=== PATIENT | male | born 1985 | race Caucasian/White ===

== ENCOUNTER 2018-10-29 14:10 | Emergency (ER) | payer MEDICARE, MEDICAID ==
[~2018-10-29] VITALS: Ht 177.8 cm; Wt 81.8 kg
[~2018-10-29 14:10] MED LIST: BENZ1TAB7 PO; DIVA-81 PO; HALO10TA13 PO; PSEU120T84 PO; QUET300T3 PO
[2018-10-29 14:51] LABS: ACETAMINOPHEN < 2.0 UG/ML (10-30); ALANINE AMINOTRANSFERASE 52 U/L (12-78); ALBUMIN 3.9 G/DL (3.4-5.0); ALBUMIN/GLOBULIN RATIO 1.4 (1.1-1.5); ALKALINE PHOSPHATASE 67 IU/L (46-116); ANION GAP 12 (8-16); ASPARTATE AMINO TRANSFERASE 65 U/L (10-37); BILIRUBIN,TOTAL 0.8 MG/DL (0.1-1.0); BLOOD UREA NITROGEN 17 MG/DL (7-18); BUN/CREATININE RATIO 18.5 (5.4-32.0); CALCIUM 9.1 MG/DL (8.5-10.1); CHLORIDE 108 MMOL/L (99-107); CREATININE 0.92 MG/DL (0.60-1.10); ETHANOL < 0.010 GM/DL (0.0-0.010); GLUCOSE 89 MG/DL (70-104); POTASSIUM 3.3 MMOL/L (3.5-5.1); SODIUM 143 MMOL/L (135-145); TOTAL CARBON DIOXIDE 22.9 MMOL/L (24-32); TOTAL PROTEIN 6.6 G/DL (6.4-8.2); eGFR > 90 ML/MIN
[2018-10-29 15:00] LABS: BASOPHILS # (AUTO) 0.1 X10'3 (0-0.2); EOSINOPHILS # (AUTO) 0.2 X10'3 (0-0.9); EOSINOPHILS % (AUTO) 2.8 % (0-6); HEMATOCRIT 41.2 % (42.0-52.0); HEMOGLOBIN 13.6 g/dl (14.0-17.9); LYMPHOCYTES # (AUTO) 1.4 X10'3 (1.1-4.8); LYMPHOCYTES % (AUTO) 21.7 % (21-51); MEAN CORPUSCULAR HEMOGLOBIN 29.6 PG (27.0-31.0); MEAN CORPUSCULAR HGB CONC 32.9 % (33.0-36.5); MEAN CORPUSCULAR VOLUME 89.8 FL (78-98); MEAN PLATELET VOLUME 10.3 FL (7.4-10.4); MONOCYTES # (AUTO) 0.5 X10'3 (0-0.9); MONOCYTES % (AUTO) 8.1 % (2-12); NEUTROPHILS # (AUTO) 4.3 X10'3 (1.8-7.7); NEUTROPHILS % (AUTO) 66.4 % (42-75); PLATELET COUNT 181 X10'3 (140-440); RED BLOOD COUNT 4.59 X10'6 (4.70-6.10); RED CELL DISTRIBUTION WIDTH 13.4 % (11.5-14.5); WHITE BLOOD COUNT 6.5 X10'3 (4.5-11.0)
[2018-10-29 16:09] LABS: URINE AMPHETAMINE SCREEN NEGATIVE (Neg); URINE BARBITUATE SCREEN NEGATIVE (Neg); URINE BENZODIAZEPINES SCREEN NEGATIVE (Neg); URINE CANNABINOID SCREEN POSITIVE (Neg); URINE COCAINE SCREEN NEGATIVE (Neg); URINE METHADONE SCREEN NEGATIVE (Neg); URINE OPIATE SCREEN NEGATIVE (Neg); URINE PHENCYCLIDINE SCREEN NEGATIVE (Neg)
[2018-10-29 16:19] LABS: CLARITY,URINE SLIGHTLY CLOUDY (Clear); COLOR,URINE YELLOW (Yellow); GLUCOSE, URINE NEGATIVE (Neg); KETONES,URINE 40 mg/dl (Neg); LEUKOCYTE ESTERASE ,URINE NEGATIVE (Neg); NITRITES, URINE NEGATIVE (Neg); OCCULT BLOOD,URINE NEGATIVE (Neg); PH,URINE 5.5 (4.8-8.0); PROTEIN,URINE 30 mg/dl (Neg)
[2018-10-29 16:24] LABS: UA COLLECTION TYPE CLN CATCH MIDSTREAM
[2018-10-29 16:29] LABS: MUCUS STRANDS MANY /LPF (Neg); SQUAMOUS EPITHELIAL CELL,UR FEW /LPF (FEW)
[2018-10-29 16:30] LABS: BACTERIA,URINE NONE SEEN /HPF (Neg); RBC,URINE NONE SEEN /HPF (0-2); WBC,URINE 0-4 /HPF (0-4)
[2018-10-29] MEDS ORDERED: nicotine 21mg patch - 24 hr TD ONE (23:45)
[2018-10-30] MEDS ORDERED: acetaminophen 325mg tablet PO ONE (07:00)
[2018-10-30] MEDS ORDERED: QUETIAPINE 50 MG TAB.SR.24H PO ONE (14:50)
[2018-10-30] MEDS ORDERED: simethicone 125mg capsule PO PRN (14:50)
[2018-10-30] MEDS ORDERED: clonazePAM 1mg tablet PO ONE (14:50)
[2018-10-30] MEDS ORDERED: QUET50TA15 PO (15:06)
[2018-10-30] MEDS: nicotine 21mg patch - 24 hr TD SCH (15:51)
[2018-10-31 05:46] VITALS: BP 138/87
[2018-10-31] MEDS: nicotine 21mg patch - 24 hr TD SCH (07:51)
[2018-10-31] MEDS ORDERED: QUETIAPINE 50 MG TAB.SR.24H PO SCH (08:00)
[2018-10-31] MEDS ORDERED: QUEtiapine 25mg tablet PO SCH (10:00)
[2018-10-31] MEDS ORDERED: QUET50TA PO (10:18)
[2018-10-31] MEDS ORDERED: CLON-528 PO (10:18)
[2018-11-01] MEDS ORDERED: ACET-2119 PO (04:51)
[2018-11-01] MEDS ORDERED: IBUP-1984 PO (04:51)
== END 2018-10-31 11:35 | disposition home or self-care (01) ==
LOC: ER 14:11
DX: F32.9 Major depressive disorder, single episode, unspecified (principal); R45.851 Suicidal ideations; F20.9 Schizophrenia, unspecified; F12.10 Cannabis abuse, uncomplicated; F15.10 Other stimulant abuse, uncomplicated; Z59.0 Homelessness; Z56.0 Unemployment, unspecified; Z79.899 Other long term (current) drug therapy
CPT/HCPCS: 36415; 80053; 80305; 80320; 80329; 81001; 84443; 85025; 99285

== ENCOUNTER 2018-11-01 04:36 | Emergency (ER) | payer MEDICARE, MEDICAID ==
[~2018-11-01] VITALS: Ht 177.8 cm; Wt 85.0 kg
[~2018-11-01 04:36] MED LIST changes: -BENZ1TAB7 PO; +CLON-528 PO; -DIVA-81 PO; -HALO10TA13 PO; -PSEU120T84 PO; -QUET300T3 PO; +QUET50TA PO; +QUET50TA15 PO
[2018-11-01 04:41] VITALS: BP 137/82
[2018-11-01] MEDS ORDERED: acetaminophen 325mg tablet PO ONE (04:50)
[2018-11-01] MEDS ORDERED: ketorolac trometh inj. 60 MG/2 ML VIAL IM ONE (04:50)
[2018-11-01] MEDS ORDERED: IBUP-1984 PO (04:51)
[2018-11-01] MEDS ORDERED: ACET-2119 PO (04:51)
== END 2018-11-01 05:17 | disposition home or self-care (01) ==
LOC: ER 04:36
DX: M25.571 Pain in right ankle and joints of right foot (principal); F12.90 Cannabis use, unspecified, uncomplicated; F15.90 Other stimulant use, unspecified, uncomplicated; Z79.899 Other long term (current) drug therapy; Z59.0 Homelessness; Z56.0 Unemployment, unspecified
CPT/HCPCS: 96372; 99283; J1885

== ENCOUNTER 2018-11-01 22:15 | Emergency (ER) | payer MEDICARE, MEDICAID ==
[~2018-11-01] VITALS: Ht 177.8 cm; Wt 81.8 kg
[~2018-11-01 22:15] MED LIST changes: +ACET-2119 PO; +IBUP-1984 PO
[2018-11-01 22:16] VITALS: BP 132/73
[2018-11-01] MEDS ORDERED: LORazepam 2 mg/ml vial IM ONE ×2 (22:40→23:35)
[2018-11-01] MEDS ORDERED: diphenhydrAMINE 50 mg/ml inj IM ONE (22:40)
[2018-11-01] MEDS ORDERED: haloperidol lactate 5mg/ml inj IM ONE (22:40)
[2018-11-02 01:29] LABS: CLARITY,URINE CLEAR (Clear); COLOR,URINE YELLOW (Yellow); GLUCOSE, URINE NEGATIVE (Neg); KETONES,URINE NEGATIVE (Neg); LEUKOCYTE ESTERASE ,URINE NEGATIVE (Neg); NITRITES, URINE NEGATIVE (Neg); OCCULT BLOOD,URINE NEGATIVE (Neg); PROTEIN,URINE NEGATIVE (Neg); UROBILINOGEN,URINE 0.2 E.U/dL (0.2-1.0)
[2018-11-02 01:34] LABS: UA COLLECTION TYPE CLN CATCH MIDSTREAM
[2018-11-02 01:44] LABS: ALANINE AMINOTRANSFERASE 47 U/L (12-78); ALBUMIN 3.8 G/DL (3.4-5.0); ALBUMIN/GLOBULIN RATIO 1.4 (1.1-1.5); ALKALINE PHOSPHATASE 56 IU/L (46-116); ANION GAP 11 (8-16); ASPARTATE AMINO TRANSFERASE 37 U/L (10-37); BILIRUBIN,TOTAL 0.6 MG/DL (0.1-1.0); BLOOD UREA NITROGEN 16 MG/DL (7-18); CALCIUM 9.1 MG/DL (8.5-10.1); CHLORIDE 105 MMOL/L (99-107); CREATININE 0.94 MG/DL (0.60-1.10); ETHANOL < 0.010 GM/DL (0.0-0.010); GLUCOSE 79 MG/DL (70-104); POTASSIUM 3.8 MMOL/L (3.5-5.1); SODIUM 142 MMOL/L (135-145); TOTAL CARBON DIOXIDE 25.7 MMOL/L (24-32); TOTAL PROTEIN 6.5 G/DL (6.4-8.2); eGFR > 90 ML/MIN
[2018-11-02 01:44] LABS: URINE AMPHETAMINE SCREEN NEGATIVE (Neg); URINE BARBITUATE SCREEN NEGATIVE (Neg); URINE BENZODIAZEPINES SCREEN NEGATIVE (Neg); URINE CANNABINOID SCREEN POSITIVE (Neg); URINE COCAINE SCREEN NEGATIVE (Neg); URINE METHADONE SCREEN NEGATIVE (Neg); URINE OPIATE SCREEN NEGATIVE (Neg); URINE PHENCYCLIDINE SCREEN NEGATIVE (Neg)
[2018-11-02 01:48] LABS: ACETAMINOPHEN < 2.0 UG/ML (10-30)
[2018-11-02 02:16] LABS: BASOPHILS # (AUTO) 0.1 X10'3 (0-0.2); BASOPHILS % (AUTO) 1.9 % (0-1); EOSINOPHILS # (AUTO) 0.3 X10'3 (0-0.9); EOSINOPHILS % (AUTO) 3.9 % (0-6); HEMATOCRIT 40.7 % (42.0-52.0); HEMOGLOBIN 13.6 g/dl (14.0-17.9); LYMPHOCYTES % (AUTO) 30.6 % (21-51); MEAN CORPUSCULAR HEMOGLOBIN 29.7 PG (27.0-31.0); MEAN CORPUSCULAR HGB CONC 33.4 % (33.0-36.5); MEAN CORPUSCULAR VOLUME 89.1 FL (78-98); MEAN PLATELET VOLUME 10.3 FL (7.4-10.4); MONOCYTES # (AUTO) 0.8 X10'3 (0-0.9); MONOCYTES % (AUTO) 12.1 % (2-12); NEUTROPHILS # (AUTO) 3.4 X10'3 (1.8-7.7); NEUTROPHILS % (AUTO) 51.5 % (42-75); PLATELET COUNT 175 X10'3 (140-440); RED BLOOD COUNT 4.57 X10'6 (4.70-6.10); RED CELL DISTRIBUTION WIDTH 13.4 % (11.5-14.5); WHITE BLOOD COUNT 6.6 X10'3 (4.5-11.0)
== END 2018-11-02 11:16 | disposition home or self-care (01) ==
LOC: ER 22:15
DX: R45.851 Suicidal ideations (principal); R45.1 Restlessness and agitation; F32.9 Major depressive disorder, single episode, unspecified; F20.9 Schizophrenia, unspecified; F12.90 Cannabis use, unspecified, uncomplicated; F15.90 Other stimulant use, unspecified, uncomplicated; Z59.0 Homelessness; Z56.0 Unemployment, unspecified; Z79.899 Other long term (current) drug therapy
CPT/HCPCS: 36415; 80053; 80305; 80320; 80329; 81003; 85025; 96372; 99291; J1200; J1630; J2060

== ENCOUNTER 2018-11-04 08:22 | Emergency (ER) | payer MEDICARE, MEDICAID ==
[~2018-11-04] VITALS: Ht 177.8 cm; Wt 81.0 kg
[2018-11-04] MEDS ORDERED: QUET50TA15 PO (09:25)
[2018-11-04 09:53] VITALS: BP 117/61
== END 2018-11-04 09:55 | disposition home or self-care (01) ==
LOC: ER 08:22
DX: F32.9 Major depressive disorder, single episode, unspecified (principal); Z76.0 Encounter for issue of repeat prescription; F20.9 Schizophrenia, unspecified; F12.90 Cannabis use, unspecified, uncomplicated; F15.90 Other stimulant use, unspecified, uncomplicated; Z79.899 Other long term (current) drug therapy; Z59.0 Homelessness; Z56.0 Unemployment, unspecified
CPT/HCPCS: 99283

== ENCOUNTER 2018-11-10 15:37 | Emergency (ER) | payer MEDICARE, MEDICAID ==
[~2018-11-10] VITALS: Ht 177.8 cm; Wt 89.5 kg
[2018-11-10 15:47] VITALS: BP 128/80
[2018-11-11] MEDS ORDERED: ALBU8.5H8 IH (17:43)
[2018-11-11] MEDS ORDERED: TRAZ-219 PO (17:43)
== END 2018-11-10 16:02 | disposition home or self-care (01) ==
LOC: ER 15:37
DX: F15.10 Other stimulant abuse, uncomplicated (principal); F32.9 Major depressive disorder, single episode, unspecified; F20.9 Schizophrenia, unspecified; F12.90 Cannabis use, unspecified, uncomplicated; Z59.0 Homelessness; Z56.0 Unemployment, unspecified; Z79.899 Other long term (current) drug therapy
CPT/HCPCS: 99281

== ENCOUNTER 2018-11-11 17:23 | Emergency (ER) | payer MEDICARE, MEDICAID ==
[~2018-11-11] VITALS: Ht 177.8 cm; Wt 81.8 kg
[2018-11-11 17:40] VITALS: BP 126/81
[2018-11-11] MEDS ORDERED: ALBU8.5H8 IH (17:43)
[2018-11-11] MEDS ORDERED: TRAZ-219 PO (17:43)
== END 2018-11-11 18:27 | disposition home or self-care (01) ==
LOC: ER 17:23
DX: F15.982 Other stimulant use, unspecified with stimulant-induced sleep disorder (principal); F12.90 Cannabis use, unspecified, uncomplicated; Z59.0 Homelessness; Z56.0 Unemployment, unspecified; Z79.899 Other long term (current) drug therapy
CPT/HCPCS: 99283

== ENCOUNTER 2018-11-18 04:22 | Emergency (ER) | payer MEDICARE, MEDICAID ==
[~2018-11-18] VITALS: Ht 177.8 cm; Wt 86.2 kg
[~2018-11-18 04:22] MED LIST changes: +ALBU8.5H8 IH; +TRAZ-219 PO
[2018-11-18 04:31] VITALS: BP 135/70
[2018-11-20] MEDS ORDERED: CLON0.5T13 PO (07:05)
[2018-11-20] MEDS ORDERED: QUET50TA22 PO (07:05)
== END 2018-11-18 05:27 | disposition home or self-care (01) ==
LOC: ER 04:24
DX: M79.671 Pain in right foot (principal); M79.672 Pain in left foot; F32.9 Major depressive disorder, single episode, unspecified; F20.9 Schizophrenia, unspecified; F12.90 Cannabis use, unspecified, uncomplicated; F15.90 Other stimulant use, unspecified, uncomplicated; Z59.0 Homelessness; Z56.0 Unemployment, unspecified; Z79.899 Other long term (current) drug therapy
CPT/HCPCS: 99281

== ENCOUNTER 2018-11-20 09:18 | Inpatient (IN) | payer MEDICARE, MEDICAID ==
[~2018-11-20] VITALS: Ht 177.8 cm; Wt 80.1 kg
[~2018-11-20 09:18] MED LIST changes: -ACET-2119 PO; -ALBU8.5H8 IH; -CLON-528 PO; +CLON0.5T13 PO; -IBUP-1984 PO; -QUET50TA PO; -QUET50TA15 PO; +QUET50TA22 PO; -TRAZ-219 PO
--- NOTE | 2018-11-20 11:00 | NUR ---
ADMIT NOTE: PT admitted to [facility] for depression by [facility]ato WORTHY through Dr Talavera. Pt was placed on 5150 for DTS. Pt was found walking close to the roadway [address] pt made statement that he wanted to get hit by a vehicle or hang himself. Pt was admitted and brought to unit at 1100 today. PT oriented to the unit. PTs clothes are being washed and pt will shower when his clothes are clean. Pt brought to 324B.
[2018-11-20] MEDS ORDERED: tuberculin, purif. prot. deriv. 5 units/0.1ml ID ONE (11:20)
[2018-11-20] MEDS ORDERED: magnesium hydroxide 30ml (MOM) UD suspension PO PRN (11:20)
[2018-11-20] MEDS ORDERED: mag hydrox/Alum hydrox/simeth 30ml oral suspension PO PRN (11:20)
[2018-11-20 13:13] VITALS: BP 106/63
--- NOTE | 2018-11-20 14:14 | NUR ---
Nursing Progress Note Chief Complaint: Depression with SI Legal hold: 5150 Client on involuntary status for DTS. Report received from [facility]. Why are they here: Patient states that he was walking down the road wanting to get run over. Diagnosis/presenting symptoms: Depression. SI Assessment What has happened this shift: Patient was brought to unit at 11:00. Cooperative with admission process. Pt. states he has been using meth and THC, allowed to sleep this afternoon. States he has HI towards his family. He reports that he has been depressed and suicidal since he was a small child, no attempts. Reports too many inpatient admissions to count. Also wants to hang himself or be run over by a car. S/I, H/I: SI and HI. A/VH: Denies. Sleep: Sleeping this afternoon. ADL's: Dirty and malodorous on admission. Showered. Group attendance: None. Were meds taken: None. Any med S/E None. Mental Status Exam Appearance: Young appearing 33-year-old male who has blood blister on left hand. Scratches and bruising to chrissie. lower extremities. Reports feet hurt due to homelessness and walking. Eye contact: Poor. Behavior: Cooperative. Speech: Clear. Mood: Depressed. Affect: Blunted. Thought process: tangential. Thought Content: Sobriety. Cognition: Intact. Insight: Poor. Judgment: Poor. Interventions PRN's used: None. Therapeutic interventions: 1:1 to assess for severity of symptoms. Pictures taken of feet, left hand. q15" safety checks. Restraints/seclusion/emergency medication: None. Justification of Continued Inpatient Treatment: Patient is suicidal and unless stabilized, would be at great risk for self-harm.
[2018-11-20] MEDS ORDERED: NO HOME MEDS (15:46)
[2018-11-20] MEDS: acetaminophen 325mg tablet PO PRN (19:25)
[2018-11-20 19:58] VITALS: BP 121/68
[2018-11-20] MEDS: traZODone 50mg tablet PO SCH (20:51)
--- NOTE | 2018-11-21 00:57 | NUR ---
Nursing Note: Chief Complaint: Depression Legal hold: 5150 Client on involuntary status for DTS Report received from nurse with use of SBAR: JAYNE Storm Why are they here: Pt. brought to the ER by police after found walking down the road with stated S/I to get hit by a vehicle or hang himself. Per pt. he has not been taking his mental health medications for some time and he has been using methamphetamine and marijuana. He lives on his parent's property in a shed, however they will not let him stay there until he is clean and sober. He has had insomnia r/t the methamphetamine use. Pt. has a long hx of depression with S/I, LPS Conservatorship, and multiple psychiatric hospitalizations. He was also in [facility] for some time and receives SSI. Diagnosis/presenting symptoms: Pt. presents as cooperative but fatigued, he denies S/I or depression at this time. Assessment What has happened this shift: Pt. in assessment with the Dr. Cerda at the beginning of the shift, and then in the Recreation Room watching TV and interacting appropriately with others. This ad writer introduced self and pt. requests PRN medication for chronic pain in his right tooth that radiates to his right ear. PRN Tylenol administered with effectiveness, and shortly afterwards he retreated to bed and continued to isolate here throughout the shift. Attempted to complete 1:1 at bedside upon administration of scheduled Trazodone, however pt. remained very fatigued and sleeping soundly. Pt. cooperative with medication administration and assessment, he denies S/I or depression at this time, states, "I'm glad the police brought me here this time instead of the [place] [facility]; I can get the help I need." S/I, H/I: Denies A/VH: N/A Sleep: Scheduled Trazodone administered, appears to be sleeping soundly. ADL's: Pt. ambulates and uses the BR independently Group attendance: Did not attend HS snack Were meds taken: Yes Any med S/E: None, however pt. slightly hypocalcemic in the ER, will endorse to AM shift and continue to monitor. Mental Status Exam Appearance: Shaved head, tattoos, appropriately dressed in hospital attire. Eye contact: Fair Behavior: Cooperative, but guarded Speech: Scant, however WNL Mood: Pleasant, but fatigued Affect: Constricted Thought process: Poverty of thought with blocking regarding mental illness Thought Content: Phobia in regards to taking medications, refused to take antipsychotics Cognition: A&O Insight: Poor Judgment: Poor to fair Interventions PRN's used: Tylenol X1 Therapeutic interventions: Established rapport, provided active listening, maintained a safe and therapeutic environment, provided a structured environment, assessed for pain and the need for medication, and maintained Q 15 min safety checks. Restraints/seclusion/emergency medication: N/A Justification of Continued Inpatient Treatment: Pt. requires interruption of current crisis, medication adjustments, therapeutic interventions, and possibly housing or referral to [facility].
[2018-11-21 07:11] VITALS: BP 116/64
[2018-11-21] MEDS ORDERED: nicotine 21mg patch - 24 hr TD SCH (08:00)
[2018-11-21 08:35] LABS: CHOL/HDL RATIO 2.3 (0.00-4.99); CHOLESTEROL 139 MG/DL (0-200); HDL CHOLESTEROL 60 MG/DL (35-60); LDL CHOLESTEROL 63 MG/DL (50-100); TRIGLYCERIDES 70 MG/DL (20-135)
[2018-11-21 09:13] LABS: HEMOGLOBIN A1C 5.4 % (4.5-6.2)
[2018-11-21] MEDS: nicotine 21mg patch - 24 hr TD SCH (09:15)
[2018-11-21] MEDS: acetaminophen 325mg tablet PO PRN ×2 (11:10→20:15)
--- NOTE | 2018-11-21 14:34 | NUR ---
Nursing Progress Note Chief Complaint: Depression with SI Legal hold: 5150 Client on involuntary status for DTS. Report received from [facility]. Why are they here: Patient states that he was walking down the road wanting to get run over. Diagnosis/presenting symptoms: Depression. SI Assessment What has happened this shift: Patient awoke in an agitated mood. States he was told by [employer] that he could have 2 cups of coffee, which was only discussed with patient. Patient states "I guess I'll just stay in bed all day". Patient states he has 10/10 back pain, tylenol given with good relief. Patient was overheard arguing with family. Patient states that his family wants him to go to rehab, but patient is adamant that he will not go into rehab. States that the probation dept. 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 Patient states that is what he wants to do. Pt. states that he cannot go home to family home until rehab. Patient states that he will probably on the streets. Patient denies SI, depression, or any associated symptoms. Refuses mood stabilizers or antipsychotics. S/I, H/I: Denies. A/VH: Denies. Sleep: 2 naps during day. ADL's: Independent. Group attendance: None. Were meds taken: Tylenol. Any med S/E None. Mental Status Exam Appearance: Young appearing 33-year-old male who has blood blister on left hand. Scratches and bruising to chrissie. lower extremities. Reports feet hurt due to homelessness and walking. Eye contact: Poor. Behavior: Angry, agitated. Speech: Clear. Mood: Agitated. Affect: Blunted. Thought process: Blocking. Thought Content: Discharge plans. Cognition: Intact. Insight: Poor. Judgment: Poor. Interventions PRN's used: Tylenol. Therapeutic interventions: 1:1 to assess for severity of symptoms. q15" safety checks. Restraints/seclusion/emergency medication: None. Justification of Continued Inpatient Treatment: Patient is in denial about SI, depression. With suicidal statements just made 11/20/18, patient needs monitoring and stabilization or will be high risk for readmission.
[2018-11-21] MEDS: hydrOXYzine 25 MG tablet PO SCH (17:16)
[2018-11-21 19:55] VITALS: BP 109/54
[2018-11-21] MEDS: traZODone 50mg tablet PO SCH (20:13)
[2018-11-21] MEDS: hydrocortisone 1% cream 28gm TP SCH (20:16)
[2018-11-21] MEDS: miconazole nitrate 28.35 gm derm cream TP SCH (20:16)
--- NOTE | 2018-11-22 02:51 | NUR ---
Nursing Note: Chief Complaint: Depression Legal hold: 5150 Client on involuntary status for DTS Report received from nurse with use of SBAR: JAYNE Storm Why are they here: Pt. brought to the ER by police after found walking down the road with stated S/I to get hit by a vehicle or hang himself. Per pt. he has not been taking his mental health medications for some time and he has been using methamphetamine and marijuana. He lives on his parent's property in a shed, however they will not let him stay there until he is clean and sober. He has had insomnia r/t the methamphetamine use. Pt. has a long hx of depression with S/I, LPS Conservatorship, and multiple psychiatric hospitalizations. He was also in nursing home for some time and receives SSI. Pt. would like to go to [employer] and study [employer]. Diagnosis/presenting symptoms: Pt. presents as withdrawn, irritated, and fatigued, he continues to deny S/I or depression. Assessment What has happened this shift: Pt. in bed sleeping in a darkened room at the beginning of the shift and continued to isolate here throughout the shift except for a brief visit from his family. Family did not stay long and pt. immediately returned back to bed, when questioned by this clinical writer about how visit went he irritably stated, "There was no visit." 1:1 completed at bedside, pt. presents as withdrawn, irritated, and fatigued, he continues to deny S/I or depression, states, "I want tomorrow to be done and over with, I want to get out of here." When this clinical writer questioned pt. regarding where he plans to go, he reported he wants to go back on the streets. He continues to refuse to attend groups or take any psychotropic medications. Miconazole Nitrate Cream applied per order for chronic burning pain in bilateral feet, with effectiveness. S/I, H/I: Denies A/VH: N/A Sleep: Scheduled Trazodone administered, appears to be sleeping soundly. However, pt reports he did not sleep well the night before and he woke up a lot with weird dreams. ADL's: Independent Group attendance:Refuses Were meds taken: Yes Any med S/E: Pt. has a slightly reddened rash on left upper arm and chest, no other s/s of allergic reaction, V/S stable, and pt. reports he believes rash is r/t the bar soap he used for a shower today. New order for Hydrocortisone Cream per Dr. Viramontes, administered at HS and will monitor. Mental Status Exam Appearance: Shaved head, tattoos (name on back of head), appropriately dressed in hospital attire. Showered today. Eye contact: Poor to fair Behavior: Cooperative, however withdrawn, irritable, and fatigued. Psychomotor WNL Speech: Scant with low volume Mood: Irritable Affect: Flat Thought process: Poverty of thought with blocking regarding mental illness Thought Content: Phobia in regards to taking medications and preoccupation/irritation regarding being kept on a MH hold Cognition: A&O X4 Insight: Poor Judgment: Poor Interventions PRN's used: Tylenol X1 for chronic burning in bilateral feet with effectiveness Therapeutic interventions: Provided active listening, maintained a safe and therapeutic environment, provided a structured environment, assessed for pain and the need for medication, removed nicotine patch at HS, administered ordered Miconazole and Hydrocortisone creams, and maintained Q 15 min safety checks. Restraints/seclusion/emergency medication: N/A Justification of Continued Inpatient Treatment: Pt. requires interruption of current crisis, medication adjustments, therapeutic interventions. Per ZAYNAB Cerda, if he discharges to the street or a hotel he will probably relapse, medications and resources will continue to be offered.
--- NOTE | 2018-11-22 03:21 | NUR ---
Nursing Note: Pt. refused scheduled 0000 Atrax. Will endorse to AM shift per possible need to readjust medication time.
[2018-11-22 08:00] VITALS: BP 94/48
[2018-11-22] MEDS: hydrOXYzine 25 MG tablet PO SCH ×2 (08:57)
[2018-11-22] MEDS: nicotine 21mg patch - 24 hr TD SCH (08:58)
[2018-11-22] MEDS: hydrocortisone 1% cream 28gm TP SCH (08:58)
[2018-11-22] MEDS: miconazole nitrate 28.35 gm derm cream TP SCH (08:58)
[2018-11-22] MEDS: acetaminophen 325mg tablet PO PRN (10:47)
[2018-11-22] MEDS ORDERED: HYDR50TA65 PO (13:54)
[2018-11-22] MEDS ORDERED: TRAZ-219 PO (13:54)
--- NOTE | 2018-11-22 15:05 | NUR ---
Discharge Note Patient discharged to home with all his personal belongings that were inventoried with him and inventory sheet signed by him. He was also given a prescription bottle of Trazodone and another of Vistaril. Walked off the unit ambulatory, accompanied by staff magdiel Echols. No signs and symptoms of distress. Patient denies suicidal ideation or intent. 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 He was given a bus pass. Community crisis service information and national suicide hotline handout given. Patient declined nicotine replacement products. States "I have a pack of cigarettes in my coat packet and the first thing I'm gonna when I get out of here is smoke one."
== END 2018-11-22 15:00 | disposition home or self-care (01) | DRG 885 ==
LOC: ADULT MH 09:18
PROVIDERS: ADMIT Psychiatry & Neurology Psychiatry; ATTEND Psychiatry & Neurology Psychiatry
DX: F25.9 Schizoaffective disorder, unspecified (principal); R45.851 Suicidal ideations; F12.20 Cannabis dependence, uncomplicated; F15.10 Other stimulant abuse, uncomplicated; R21 Rash and other nonspecific skin eruption; F41.1 Generalized anxiety disorder; F17.200 Nicotine dependence, unspecified, uncomplicated; F32.9 Major depressive disorder, single episode, unspecified; Z59.0 Homelessness; Z79.899 Other long term (current) drug therapy; Z82.49 Family history of ischemic heart disease and other diseases of the circulatory system; Z80.9 Family history of malignant neoplasm, unspecified
CPT/HCPCS: 36415; 80061; 83036; 87070; 99285; Q0177

== ENCOUNTER 2020-08-02 22:57 | Emergency (ER) | payer MEDICARE, MEDICAID ==
[~2020-08-02] VITALS: Ht 177.8 cm; Wt 120.0 kg
[~2020-08-02 22:57] MED LIST changes: -CLON0.5T13 PO; +HYDR50TA65 PO; -QUET50TA22 PO; +TRAZ-256 PO
[2020-08-02 23:01] VITALS: BP 142/92
[2020-08-02] MEDS ORDERED: HYDROcodone/acetaminophen 5mg/325mg tablet PO ONE (23:10)
[2020-08-02] MEDS ORDERED: penicillin V potassium 500mg tablet PO ONE (23:10)
[2020-08-02] MEDS ORDERED: PENI500T2 PO (23:22)
== END 2020-08-02 23:35 | disposition home or self-care (01) ==
LOC: ER 22:57
DX: K08.89 Other specified disorders of teeth and supporting structures (principal); F32.9 Major depressive disorder, single episode, unspecified; F20.9 Schizophrenia, unspecified; F12.90 Cannabis use, unspecified, uncomplicated; F15.90 Other stimulant use, unspecified, uncomplicated; Z59.0 Homelessness; Z56.0 Unemployment, unspecified
CPT/HCPCS: 99283

== ENCOUNTER 2021-02-13 14:55 | Emergency (ER) | payer MEDICAID, MEDICARE ==
[~2021-02-13] VITALS: Ht 172.7 cm; Wt 90.9 kg
[2021-02-13 15:24] VITALS: BP 120/84
== END 2021-02-13 16:35 | disposition left against medical advice (07) ==
LOC: ER 14:56
DX: Z00.8 Encounter for other general examination (principal); Z53.21 Procedure and treatment not carried out due to patient leaving prior to being seen by health care provider

== ENCOUNTER 2021-02-24 10:51 | Emergency (ER) | payer MEDICAID ==
[~2021-02-24] VITALS: Ht 165.1 cm; Wt 91.9 kg
[2021-02-24 10:54] VITALS: BP 134/79
[2021-02-24 12:04] LABS: BASOPHILS # (AUTO) 0.1 X10'3 (0-0.2); BASOPHILS % (AUTO) 0.9 % (0-1); EOSINOPHILS # (AUTO) 0.1 X10'3 (0-0.9); EOSINOPHILS % (AUTO) 2.2 % (0-6); HEMATOCRIT 34.5 % (42.0-52.0); HEMOGLOBIN 11.6 g/dl (14.0-17.9); LYMPHOCYTES # (AUTO) 1.2 X10'3 (1.1-4.8); LYMPHOCYTES % (AUTO) 18.3 % (21-51); MEAN CORPUSCULAR HEMOGLOBIN 30.7 PG (27.0-31.0); MEAN CORPUSCULAR HGB CONC 33.5 g/dL (33.0-36.5); MEAN CORPUSCULAR VOLUME 91.5 FL (78-98); MEAN PLATELET VOLUME 9.4 FL (7.4-10.4); MONOCYTES # (AUTO) 0.9 X10'3 (0-0.9); MONOCYTES % (AUTO) 14.5 % (2-12); NEUTROPHILS # (AUTO) 4.1 X10'3 (1.8-7.7); NEUTROPHILS % (AUTO) 64.1 % (42-75); PLATELET COUNT 198 X10'3 (140-440); RED BLOOD COUNT 3.77 X10'6 (4.70-6.10); RED CELL DISTRIBUTION WIDTH 13.9 % (11.5-14.5); WHITE BLOOD COUNT 6.4 X10'3 (4.5-11.0)
[2021-02-24 12:18] LABS: ALANINE AMINOTRANSFERASE 81 U/L (12-78); ALBUMIN 3.5 G/DL (3.4-5.0); ALBUMIN/GLOBULIN RATIO 1.3 (1.1-1.5); ALKALINE PHOSPHATASE 54 IU/L (46-116); ANION GAP 8 (8-16); ASPARTATE AMINO TRANSFERASE 62 U/L (10-37); BILIRUBIN,TOTAL 0.4 MG/DL (0.1-1.0); BLOOD UREA NITROGEN 15 MG/DL (7-18); BUN/CREATININE RATIO 18.5 (5.4-32.0); CALCIUM 8.9 MG/DL (8.5-10.1); CHLORIDE 110 MMOL/L (99-107); CREATININE 0.81 MG/DL (0.60-1.10); ETHANOL < 0.010 GM/DL (0.0-0.010); GLUCOSE 103 MG/DL (70-104); POTASSIUM 3.6 MMOL/L (3.5-5.1); SODIUM 144 MMOL/L (135-145); TOTAL CARBON DIOXIDE 25.6 MMOL/L (24-32); TOTAL PROTEIN 6.2 G/DL (6.4-8.2); eGFR > 90 ML/MIN
[2021-02-24 13:29] LABS: URINE AMPHETAMINE SCREEN POSITIVE (Neg); URINE BARBITUATE SCREEN NEGATIVE (Neg); URINE BENZODIAZEPINES SCREEN NEGATIVE (Neg); URINE CANNABINOID SCREEN POSITIVE (Neg); URINE COCAINE SCREEN NEGATIVE (Neg); URINE METHADONE SCREEN NEGATIVE (Neg); URINE OPIATE SCREEN NEGATIVE (Neg); URINE PHENCYCLIDINE SCREEN NEGATIVE (Neg)
[2021-02-24] MEDS ORDERED: NO HOME MEDS (15:30)
--- NOTE | 2021-02-24 15:34 | NUR ---
THE PATIENT WAS PLAYING WITH THE VITAL SIGNS MONITOR MOUNTED ON THE WALL. I ASKED HIM TO PLEASE NOT TOUCH EITHER MONITOR IN THE ROOM.
--- NOTE | 2021-02-24 16:50 | NUR ---
Patient upset regarding interaction between myself, sitter (Shameka) and EMT (Dc). Patient felt that playful interaction between staff was inappriate because as patient stated "I loved her first" which unbenounced to staff he was referring to Shameka. Patient was becoming aggitated and hostile with Dc EMT, I went to door way of room and stated to patient that it was not an inappropriate interaction was purely innoccent. Patient continued to interrupt regarding incident and I stated to patient that he needed to not be concerned regarding staff interacting amongst each other. Patient agreed at this time and sat on gurney.
[2021-02-24] MEDS ORDERED: diphenhydrAMINE 50 mg/ml inj IM ONE (17:05)
[2021-02-24] MEDS ORDERED: LORazepam 2 mg/ml vial IM ONE (17:05)
--- NOTE | 2021-02-24 17:06 | NUR ---
THE PATIENT WAS FORCEFULLY TOUCHING THE VITAL SIGNS MONITOR FOR THE SECOND TIME THAT I NOTICED. PATIENT WAS VERBALLY AGRESSIVE AND PACING THE ROOM , AND GETTING UP INTO MY FACE. I POLITELY ASKED THE PATIENT TO NOT TOUCH THE MONITOR AND TO PLEASE STEP BACK. THE TECH CALLED SECURITY. THE MONITOR WAS TURNED OFF AND CORDS REMOVED WELL THE MOUSE AND KEYBOARD FOR THE COMPUTER MONITOR. PATIENT WAS ASKED TO STAY IN BED AND READ THE MAGAZIBE THAT HE WAS PROVIDED
--- NOTE | 2021-02-24 17:37 | NUR ---
umang from [facility] at bedside, assessing pt.
== END 2021-02-24 18:13 | disposition home or self-care (01) ==
LOC: ER 10:52
DX: R45.850 Homicidal ideations (principal); R74.01 Elevation of levels of liver transaminase levels; F32.9 Major depressive disorder, single episode, unspecified; F20.9 Schizophrenia, unspecified; F12.90 Cannabis use, unspecified, uncomplicated; F15.90 Other stimulant use, unspecified, uncomplicated; Z59.0 Homelessness; Z56.0 Unemployment, unspecified; Z79.899 Other long term (current) drug therapy
CPT/HCPCS: 36415; 80053; 80178; 80305; 80320; 85025; 99285

== ENCOUNTER 2023-12-25 06:01 | Emergency (ER) | payer SELFPAY ==
[~2023-12-25] VITALS: Ht 177.8 cm; Wt 106.5 kg
[~2023-12-25 06:01] MED LIST changes: -HYDR50TA65 PO; +NO HOME MEDS; -TRAZ-256 PO
[2023-12-25 07:51] LABS: URINE AMPHETAMINE SCREEN POSITIVE (Neg); URINE BARBITUATE SCREEN NEGATIVE (Neg); URINE BENZODIAZEPINES SCREEN NEGATIVE (Neg); URINE CANNABINOID SCREEN POSITIVE (Neg); URINE COCAINE SCREEN NEGATIVE (Neg); URINE METHADONE SCREEN NEGATIVE (Neg); URINE OPIATE SCREEN NEGATIVE (Neg); URINE PHENCYCLIDINE SCREEN NEGATIVE (Neg)
[2023-12-25 08:16] LABS: BILIRUBIN,URINE NEGATIVE (Neg); CLARITY,URINE CLEAR (Clear); COLOR,URINE YELLOW (Yellow); GLUCOSE, URINE NEGATIVE (Neg); KETONES,URINE NEGATIVE (Neg); LEUKOCYTE ESTERASE ,URINE NEGATIVE (Neg); NITRITES, URINE NEGATIVE (Neg); OCCULT BLOOD,URINE NEGATIVE (Neg); PROTEIN,URINE NEGATIVE (Neg); UROBILINOGEN,URINE 0.2 E.U/dL (0.2-1.0)
[2023-12-25 08:29] LABS: UA COLLECTION TYPE NON-SPECIFIED
[2023-12-25 08:40] LABS: BASOPHILS # (AUTO) 0.1 X10'3 (0-0.2); BASOPHILS % (AUTO) 0.9 % (0-1); EOSINOPHILS % (AUTO) 0.6 % (0-6); HEMOGLOBIN 13.9 g/dl (14.0-17.9); LYMPHOCYTES # (AUTO) 1.5 X10'3 (1.1-4.8); LYMPHOCYTES % (AUTO) 20.3 % (21-51); MEAN CORPUSCULAR HEMOGLOBIN 30.1 PG (27.0-31.0); MEAN CORPUSCULAR HGB CONC 33.8 g/dL (33.0-36.5); MONOCYTES # (AUTO) 0.8 X10'3 (0-0.9); NEUTROPHILS # (AUTO) 4.8 X10'3 (1.8-7.7); NEUTROPHILS % (AUTO) 67.2 % (42-75); PLATELET COUNT 239 X10'3 (140-440); RED BLOOD COUNT 4.61 X10'6 (4.70-6.10); RED CELL DISTRIBUTION WIDTH 13.6 % (11.5-14.5); WHITE BLOOD COUNT 7.2 X10'3 (4.5-11.0)
[2023-12-25] MEDS: nicotine 21mg patch - 24 hr TD ONE (08:40)
[2023-12-25 10:21] LABS: ALBUMIN 4.1 G/DL (3.4-5.0); ANION GAP 12 (8-16); BLOOD UREA NITROGEN 16 MG/DL (7-18); BUN/CREATININE RATIO 17.8 (10.0-20.0); CHLORIDE 104 MMOL/L (99-107); ETHANOL < 10 MG/DL (<10); GLUCOSE 157 MG/DL (70-104); POTASSIUM 3.6 MMOL/L (3.5-5.1); SODIUM 139 MMOL/L (135-145); TOTAL CARBON DIOXIDE 23.1 MMOL/L (24-32); eCRCL 117 ML/MIN; eGFR > 90 ML/MIN
[2023-12-25] MEDS: LORazepam 1 MG tablet PO PRN (12:16)
[2023-12-26] MEDS: nicotine 21mg patch - 24 hr TD SCH (10:25)
[2023-12-27] MEDS: traZODone 50mg tablet PO SCH (21:00)
[2023-12-28 06:28] VITALS: PULSE 85; TEMP 98.3
[2023-12-28 10:43] VITALS: BP 120/77; RESP 16; O2SAT 96
== END 2023-12-28 10:45 | disposition still patient (30) ==
LOC: ER 06:06
DX: F20.9 Schizophrenia, unspecified (principal); Z20.822 Contact with and (suspected) exposure to COVID-19; F12.90 Cannabis use, unspecified, uncomplicated; F15.90 Other stimulant use, unspecified, uncomplicated
CPT/HCPCS: 36415; 80048; 80305; 80320; 81003; 84443; 85025; 87811; 99285

== ENCOUNTER 2024-03-29 16:13 | Emergency (ER) | payer MEDICAID ==
[~2024-03-29] VITALS: Ht 177.8 cm; Wt 89.4 kg
[2024-03-29 16:14] VITALS: BP 140/87; PULSE 110; RESP 18; TEMP 99.1; O2SAT 98
[2024-03-29 17:29] LABS: URINE AMPHETAMINE SCREEN NEGATIVE (Neg); URINE BARBITUATE SCREEN NEGATIVE (Neg); URINE BENZODIAZEPINES SCREEN NEGATIVE (Neg); URINE CANNABINOID SCREEN POSITIVE (Neg); URINE COCAINE SCREEN NEGATIVE (Neg); URINE METHADONE SCREEN NEGATIVE (Neg); URINE OPIATE SCREEN NEGATIVE (Neg); URINE PHENCYCLIDINE SCREEN NEGATIVE (Neg)
[2024-03-29 17:51] LABS: BASOPHILS # (AUTO) 0.1 X10'3 (0-0.2); EOSINOPHILS # (AUTO) 0.3 X10'3 (0-0.9); EOSINOPHILS % (AUTO) 4.2 % (0-6); HEMATOCRIT 37.1 % (42.0-52.0); HEMOGLOBIN 12.6 g/dl (14.0-17.9); LYMPHOCYTES # (AUTO) 2.2 X10'3 (1.1-4.8); LYMPHOCYTES % (AUTO) 31.5 % (21-51); MEAN CORPUSCULAR HEMOGLOBIN 30.8 PG (27.0-31.0); MEAN CORPUSCULAR VOLUME 90.6 FL (78-98); MEAN PLATELET VOLUME 9.3 FL (7.4-10.4); MONOCYTES # (AUTO) 0.7 X10'3 (0-0.9); MONOCYTES % (AUTO) 10.5 % (2-12); NEUTROPHILS # (AUTO) 3.7 X10'3 (1.8-7.7); NEUTROPHILS % (AUTO) 52.8 % (42-75); PLATELET COUNT 210 X10'3 (140-440); RED BLOOD COUNT 4.09 X10'6 (4.70-6.10); RED CELL DISTRIBUTION WIDTH 13.5 % (11.5-14.5); WHITE BLOOD COUNT 6.9 X10'3 (4.5-11.0)
[2024-03-29 18:03] LABS: ALBUMIN 3.8 G/DL (3.4-5.0); ANION GAP 12 (8-16); BLOOD UREA NITROGEN 15 MG/DL (7-18); BUN/CREATININE RATIO 16.7 (10.0-20.0); CALCIUM 8.7 MG/DL (8.5-10.1); CHLORIDE 105 MMOL/L (99-107); ETHANOL < 10 MG/DL (<10); GLUCOSE 100 MG/DL (70-104); SODIUM 140 MMOL/L (135-145); TOTAL CARBON DIOXIDE 23.2 MMOL/L (24-32); eCRCL 117 ML/MIN; eGFR > 90 ML/MIN
[2024-03-29 18:04] LABS: POTASSIUM 3.8 MMOL/L (3.5-5.1)
== END 2024-03-29 18:47 | disposition home or self-care (01) ==
LOC: ER 16:14
DX: R45.851 Suicidal ideations (principal); R45.850 Homicidal ideations; F32.A Depression, unspecified; F12.90 Cannabis use, unspecified, uncomplicated; F15.90 Other stimulant use, unspecified, uncomplicated; Z20.822 Contact with and (suspected) exposure to COVID-19; Z59.00 Homelessness unspecified; Z56.0 Unemployment, unspecified; Z72.89 Other problems related to lifestyle
CPT/HCPCS: 36415; 80048; 80305; 80320; 85025; 87811; 99284; 99291

== ENCOUNTER 2024-03-31 10:57 | Emergency (ER) | payer MEDICAID ==
[~2024-03-31] VITALS: Ht 177.8 cm; Wt 89.4 kg
[2024-03-31 11:44] LABS: BASOPHILS # (AUTO) 0.1 X10'3 (0-0.2); EOSINOPHILS # (AUTO) 0.1 X10'3 (0-0.9); EOSINOPHILS % (AUTO) 0.5 % (0-6); HEMATOCRIT 39.7 % (42.0-52.0); HEMOGLOBIN 13.2 g/dl (14.0-17.9); LYMPHOCYTES # (AUTO) 2.2 X10'3 (1.1-4.8); LYMPHOCYTES % (AUTO) 18.7 % (21-51); MEAN CORPUSCULAR HGB CONC 33.2 g/dL (33.0-36.5); MEAN CORPUSCULAR VOLUME 90.1 FL (78-98); MONOCYTES # (AUTO) 1.4 X10'3 (0-0.9); MONOCYTES % (AUTO) 11.7 % (2-12); NEUTROPHILS # (AUTO) 8.1 X10'3 (1.8-7.7); NEUTROPHILS % (AUTO) 68.1 % (42-75); PLATELET COUNT 239 X10'3 (140-440); RED CELL DISTRIBUTION WIDTH 13.7 % (11.5-14.5); WHITE BLOOD COUNT 11.9 X10'3 (4.5-11.0)
[2024-03-31 11:55] LABS: ALBUMIN 4.3 G/DL (3.4-5.0); ANION GAP 11 (8-16); BLOOD UREA NITROGEN 20 MG/DL (7-18); BUN/CREATININE RATIO 17.5 (10.0-20.0); CALCIUM 9.3 MG/DL (8.5-10.1); CHLORIDE 105 MMOL/L (99-107); CREATININE 1.14 MG/DL (0.60-1.10); ETHANOL < 10 MG/DL (<10); GLUCOSE 101 MG/DL (70-104); POTASSIUM 3.7 MMOL/L (3.5-5.1); SODIUM 141 MMOL/L (135-145); TOTAL CARBON DIOXIDE 25.3 MMOL/L (24-32); eGFR 73 ML/MIN
[2024-03-31] MEDS ORDERED: ziprasidone IM 20mg inj **IM only IM ONE (16:30)
[2024-03-31] MEDS ORDERED: nicotine 21mg patch - 24 hr TD SCH (16:30)
[2024-03-31 16:41] LABS: URINE AMPHETAMINE SCREEN POSITIVE (Neg); URINE BARBITUATE SCREEN NEGATIVE (Neg); URINE BENZODIAZEPINES SCREEN NEGATIVE (Neg); URINE CANNABINOID SCREEN POSITIVE (Neg); URINE COCAINE SCREEN NEGATIVE (Neg); URINE METHADONE SCREEN NEGATIVE (Neg); URINE OPIATE SCREEN NEGATIVE (Neg); URINE PHENCYCLIDINE SCREEN NEGATIVE (Neg)
[2024-03-31] MEDS: diphenhydrAMINE 50 mg/ml inj IV ONE (16:46)
[2024-03-31] MEDS: nicotine 21mg patch - 24 hr TD ONE (16:46)
[2024-03-31 19:43] VITALS: BP 110/73; PULSE 71; RESP 16; TEMP 97; O2SAT 99
[2024-04-01] MEDS: LORazepam 1 MG tablet PO ONE (02:00)
[2024-04-01] MEDS: ibuprofen tablet 400 MG TABLET PO ONE (02:00)
[2024-04-01] MEDS: ibuprofen 200mg tablet PO ONE (07:29)
[2024-04-01] MEDS ORDERED: nicotine 7mg patch - 24hr TD ONE (07:30)
[2024-04-01] MEDS: nicotine 21mg patch - 24 hr TD ONE (08:04)
[2024-04-01] MEDS ORDERED: ziprasidone IM 20mg inj **IM only IM ONE (08:10)
[2024-04-01] MEDS: ziprasidone 20mg capsule PO SCH (08:23)
== END 2024-04-01 11:52 | disposition home or self-care (01) ==
LOC: ER 10:58
DX: F29 Unspecified psychosis not due to a substance or known physiological condition (principal); Z20.822 Contact with and (suspected) exposure to COVID-19; F12.90 Cannabis use, unspecified, uncomplicated; F15.90 Other stimulant use, unspecified, uncomplicated
CPT/HCPCS: 36415; 80048; 80305; 80320; 85025; 87811; 96374; 99285; J1200

== ENCOUNTER 2024-10-24 09:12 | Emergency (ER) | payer MEDICAID ==
[~2024-10-24] VITALS: Ht 167.6 cm; Wt 80.6 kg
[2024-10-24 09:17] VITALS: BP 130/63; PULSE 96; RESP 16; TEMP 98.1; O2SAT 97
[2024-10-24] MEDS: OLANZapine 2.5MG tablet PO STA (10:07)
[2024-10-24] MEDS ORDERED: HYDR-3686 PO (10:43)
[2024-10-24] MEDS: LORazepam 1 MG tablet PO ONE (10:54)
[2024-10-24] MEDS: diphenhydrAMINE 25mg capsule PO ONE (10:54)
== END 2024-10-24 10:57 | disposition home or self-care (01) ==
LOC: ER 09:13
DX: F15.10 Other stimulant abuse, uncomplicated (principal); F12.90 Cannabis use, unspecified, uncomplicated; F20.9 Schizophrenia, unspecified
CPT/HCPCS: 99284; Q0163